=== PATIENT | female | born 1945 | race Caucasian/White ===

== ENCOUNTER → 2019-01-27 | Outpatient (CLI) | payer MEDICARE ==
[~2019-01-27] MED LIST: ATENOLOL PO; ATENOLOL25 MG PO; ATIVAN0.5 MG PO; CLONIDINE HCL0.1 MG PO; DIGITEK125 MCG; MACROBID 100 M100 MG PO; NORCO 10-325 T1 EACH PO; PRAVACHOL10 MG PO; PRAVASTATIN SOD20 MG PO; XANAX0.5 MG PO; Z.0.LOPRESSOR100 MG; [UNRECOGNIZED DRUG - CODE]; [UNRECOGNIZED DRUG - OTHER]
--- NOTE | 2019-01-27 15:43 | Diagnostic Imaging Report ---
Abdomen, 1 view. History: UTI. Findings: Air is scattered throughout nondilated small and large bowel. Moderate retained stool is present throughout the colon. There are no masses or abnormal calcifications. Degenerative changes are present throughout the lumbar spine. IMPRESSION: Non-specific bowel gas pattern. Signed by: Wilfred Vargas on 01/27/2019 3:39 PM
--- NOTE | 2019-01-27 15:44 | Diagnostic Imaging Report ---
Renal ultrasound, 01/27/2019. History: UTI. Discussion: Transverse and longitudinal images of the kidneys were obtained demonstrating normal renal sizes and echogenicities. There is no evidence of hydronephrosis, mass, or renal calculus. The right kidney measures 10.9 cm and the left kidney measures 10.0 cm in length. The urinary bladder is unremarkable. Bladder volume measures 313 mL. There is no evidence of free fluid. IMPRESSION: Normal renal ultrasound. Signed by: Wilfred Vargas on 01/27/2019 3:40 PM
== END ==
LOC: US 13:10
PROVIDERS: ATTEND Urology
DX: N39.0 Urinary tract infection, site not specified (principal)
CPT/HCPCS: 74018; 76770

== ENCOUNTER 2022-08-15 22:09 | Emergency (ER) | payer MEDICARE, OTHER ==
[~2022-08-15] VITALS: Ht 167.6 cm; Wt 82.1 kg
[~2022-08-15 22:09] MED LIST changes: +SODIUM CHLORIDE FLUSH 10 ML SYR IV PRN
[2022-08-15] MEDS ORDERED: ONDANSETRON HCL INJ 2MG/ML 2ML 2 MG/ML VIAL IV STA (23:57)
[2022-08-16] MEDS ORDERED: SODIUM CHLORIDE 0.9% 1000ML 1,000 ML IV ONE
[2022-08-16 00:12] LABS: BASOPHILS % 0.1 % (0.0-1.0); HEMATOCRIT 42.2 % (34.2-44.1); HEMOGLOBIN 14.2 g/dL (12.0-16.0); LYMPHOCYTES # (AUTO) 0.9 (1.0-3.2); LYMPHOCYTES % 6.6 % (18.0-39.1); MEAN CORPUSCULAR HEMOGLOBIN 29.8 pg (28-32); MEAN CORPUSCULAR HGB CONC 33.6 g/dL (31-35); MEAN CORPUSCULAR VOLUME 88.5 fL (81-99); MONOCYTES # (AUTO) 0.7 (0.2-0.8); NEUTROPHILS # (AUTO) 11.9 (2.1-6.9); NEUTROPHILS % 88.1 % (38.7-80.0); PLATELET COUNT 213 x10e3/uL (140-360); RED BLOOD COUNT 4.77 x10e6/uL (3.6-5.1)
[2022-08-16 00:21] LABS: INR 0.95; PROTHROMBIN TIME 12.9 seconds (11.9-14.5)
[2022-08-16 00:22] LABS: PARTIAL THROMBOPLASTIN TIME 27.4 seconds (23.8-35.5)
[2022-08-16 00:31] LABS: ALBUMIN 4.1 g/dL (3.5-5.0); ALBUMIN/GLOBULIN RATIO 1.2 (0.8-2.0); ANION GAP 14.9 mmol/L (8-16); CALCIUM 9.1 mg/dL (8.4-10.2); CREATININE, SERUM 0.7 mg/dL (0.57-1.11); POTASSIUM 3.9 mmol/L (3.5-5.1)
[2022-08-16] MEDS ORDERED: IOPAMIDOL 370 MG/ML 100 ML INFUS..BTL INJ ONE (00:56)
[2022-08-16] MEDS ORDERED: DOCUSATE SODIU100 MG PO (04:23)
== END 2022-08-16 04:54 | disposition home or self-care (01) ==
LOC: ER 22:34
DX: K56.41 Fecal impaction (principal); R10.31 Right lower quadrant pain; R11.0 Nausea; I10 Essential (primary) hypertension; R94.31 Abnormal electrocardiogram [ECG] [EKG]
CPT/HCPCS: 36415; 71045; 74177; 80053; 83690; 84484; 85025; 85610; 85730; 93005; 99285; J2405; J7030; Q9967

== ENCOUNTER 2024-01-23 03:33 | Emergency (ER) | payer MEDICARE ==
[~2024-01-23] VITALS: Ht 167.6 cm; Wt 75.7 kg
[~2024-01-23 03:33] MED LIST changes: +DOCUSATE SODIU100 MG PO; -SODIUM CHLORIDE FLUSH 10 ML SYR IV PRN
[2024-01-23 03:39] VITALS: PULSE 67; RESP 18; TEMP 98.3; O2SAT 100
== END 2024-01-23 04:15 | disposition home or self-care (01) ==
LOC: ER 03:41
DX: K62.89 Other specified diseases of anus and rectum (principal); K56.41 Fecal impaction; I10 Essential (primary) hypertension
CPT/HCPCS: 99283